=== PATIENT | male | born 1960 | race Hispanic/Latino ===

== ENCOUNTER 2016-11-19 12:23 | Emergency (ER) | payer SELFPAY ==
[~2016-11-19] VITALS: Ht 162.6 cm; Wt 86.0 kg
[~2016-11-19 12:23] MED LIST: ACETTAB3 OR; AMOXICILLIN500 MG OR; ASPIRIN EC325 MG PO; ASPIRIN EC81 MG PO; CEPHALEXIN500 M1 PO; CLINDAMYCIN HC300 MG PO; DULOXETINE HCL30 MG PO; FLEXERIL PO; FLONASE SPRAY50 MC1; HYDROCHLOROT12.5 M1 PO; HYDROCHLOROT12.5 MG PO; LIPITOR20 MG PO; LISINOPRIL10 MG PO; LORTAB 7.5 PO; LORTAB5 PO; MIRTAZAPINE15 MG PO; NAPROSYN500 MG PO; NEXIUM40 M1 PO; OMEPRAZOLE40 MG PO; RISPERDAL M1 MG PO; RISPERDAL2 MG PO; RISPERIDONE0.5 MG PO; ROBITUSSIN AC10 ML OR; SM ASPIRIN ENT325 MG PO; ULTRAM50 M1 PO; ULTRAM50 MG PO; ZANTAC150 MG OR; [UNRECOGNIZED DRUG - OTHER]; [UNRECOGNIZED DRUG - REMARK]; [UNRECOGNIZED DRUG - REMARK]
[2016-11-19] MEDS ORDERED: BUSPIRONE5 MG PO (12:44)
[2016-11-19 13:14] LABS: URINE BILIRUBIN - DIPSTICK NEGATIVE (NEGATIVE); URINE BLOOD DIPSTICK NEGATIVE (NEGATIVE); URINE CLARITY CLEAR; URINE COLOR YELLOW; URINE GLUCOSE - DIPSTICK 500 mg/dL (NEGATIVE); URINE KETONE NEGATIVE (NEGATIVE); URINE LEUK ESTERASE NEGATIVE (NEGATIVE); URINE NITRITE - DIPSTICK NEGATIVE (Negative); URINE PROTEIN - DIPSTICK NEGATIVE (NEG-TRACE); URINE UROBILINOGEN - DIPSTICK 0.2 E.U./dL (0.2)
[2016-11-19 13:15] LABS: HEMATOCRIT 44.1 % (39.0-50.0); HEMOGLOBIN 15.9 g/dl (14.0-18.0); IMMATURE GRANULOCYTES 0.5 % (0.0-1.0); MEAN CELL VOLUME 92.8 fL CALC (80.0-100.0); MEAN CORPUSCULAR HGB 33.5 pG CALC (26.0-32.0); MEAN CORPUSCULAR HGB CONC 36.1 g/L CALC (32.0-36.0); NEUT# 3.2 thou/uL (1.82-7.42); RED BLOOD COUNT 4.75 mill/uL (4.70-6.10); RED CELL DISTRI WIDTH 12.6 % (11.5-15.5)
[2016-11-19 13:27] LABS: ALBUMIN 4.4 g/dL (3.2-5.0); ALKALINE PHOSPHATASE 57 u/l (38-126); ANION GAP 17 (6-22 (CALC)); BILIRUBIN, TOTAL 0.7 mg/dL (0.0-1.4); BUN 15 mg/dL (9-20); BUN/CREATININE RATIO 17 (12-20 (CALC)); CALCIUM 9.4 mg/dL (8.4-10.2); CARBON DIOXIDE 23 mmol/l (22-30); CHLORIDE 104 mmol/l (95-108); CREATININE 0.9 mg/dL (0.7-1.3); GFR > 60 ML/MIN (>=60 (CALC)); GFR FOR AFR.AMER. > 60 ML/MIN (>=60 (CALC)); GLUCOSE 218 mg/dL (75-110); LIPASE 175 u/l (23-300); POTASSIUM 3.9 mmol/l (3.5-5.1); SGOT/AST 22 u/l (17-59); SGPT/ALT 46 u/l (21-72); SODIUM 140 mmol/l (137-146); TOTAL PROTEIN 7.8 g/dL (6.3-8.2)
[2016-11-19] MEDS ORDERED: ZOFRAN4 M1 PO (15:00)
[2016-11-19 15:11] VITALS: BP 98/61
== END 2016-11-19 15:21 | disposition home or self-care (01) | DRG 392 ==
LOC: ED 12:23
PROVIDERS: Family Medicine
DX: R10.30 Lower abdominal pain, unspecified (principal); I10 Essential (primary) hypertension; K29.70 Gastritis, unspecified, without bleeding
CPT/HCPCS: Q9967

== ENCOUNTER 2019-10-25 16:55 | Emergency (ER) | payer BC ==
[~2019-10-25] VITALS: Ht 162.6 cm; Wt 86.0 kg
[~2019-10-25 16:55] MED LIST changes: +BUSPIRONE5 MG PO; +ZOFRAN4 M1 PO
[2019-10-25 17:26] LABS: HEMOGLOBIN 14.7 g/dl (14.0-18.0); IMMATURE GRANULOCYTES 0.2 % (0.0-5.0); MEAN CORPUSCULAR HGB CONC 33.4 g/dL CAL (32.0-36.0); NEUT# 2.84 thou/uL (1.82-7.42); RED BLOOD COUNT 4.59 mill/uL (4.70-6.10); RED CELL DISTRI WIDTH 12.7 % (11.5-15.5)
[2019-10-25 17:27] LABS: MEAN CELL VOLUME 95.9 fL CALC (80.0-100.0)
[2019-10-25 17:39] LABS: ALBUMIN 4.5 g/dL (3.2-5.0); ALKALINE PHOSPHATASE 68 u/l (38-126); ANION GAP 11 (6-22 (CALC)); BUN 29 mg/dL (9-20); BUN/CREATININE RATIO 28 (12-20 (CALC)); CARBON DIOXIDE 26 mmol/l (22-30); CHLORIDE 105 mmol/l (95-108); GFR > 60 ML/MIN (>=60 (CALC)); GFR FOR AFR.AMER. > 60 ML/MIN (>=60 (CALC)); LIPASE 167 u/l (23-300); POTASSIUM 4.5 mmol/l (3.5-5.1); SGOT/AST 32 u/l (17-59); SODIUM 137 mmol/l (137-146); TOTAL PROTEIN 7.8 g/dL (6.3-8.2)
[2019-10-25 17:47] LABS: BILIRUBIN, TOTAL 0.3 mg/dL (0.0-1.4)
[2019-10-25 17:47] LABS: URINE BILIRUBIN - DIPSTICK NEGATIVE (NEGATIVE); URINE BLOOD DIPSTICK NEGATIVE (NEGATIVE); URINE COLOR YELLOW; URINE GLUCOSE - DIPSTICK NEGATIVE (NEGATIVE); URINE KETONE NEGATIVE (NEGATIVE); URINE LEUK ESTERASE NEGATIVE (NEGATIVE); URINE NITRITE - DIPSTICK NEGATIVE (Negative); URINE PROTEIN - DIPSTICK NEGATIVE (NEG-TRACE); URINE UROBILINOGEN - DIPSTICK 0.2 E.U./dL (0.2)
[2019-10-25] MEDS ORDERED: PEPCID20 MG PO ×3 (18:48→19:09)
[2019-10-25] MEDS ORDERED: ZOFRAN4 MG/TAB PO ×3 (18:48→19:09)
[2019-10-25 19:03] VITALS: BP 165/99
== END 2019-10-25 19:13 | disposition home or self-care (01) | DRG 392 ==
LOC: ED 16:55
DX: K29.70 Gastritis, unspecified, without bleeding (principal); I10 Essential (primary) hypertension
CPT/HCPCS: Q9967

== ENCOUNTER 2020-05-30 14:03 | Emergency (ER) | payer OTHER ==
[~2020-05-30] VITALS: Ht 165.1 cm; Wt 91.0 kg
[~2020-05-30 14:03] MED LIST changes: +PEPCID20 MG PO; +ZOFRAN4 MG/TAB PO
[2020-05-30] MEDS ORDERED: LISINOPRIL20 M1 PO (15:24)
[2020-05-30 17:40] VITALS: BP 123/88
== END 2020-05-30 17:40 | disposition home or self-care (01) | DRG 605 ==
LOC: ED 14:03
DX: S61.032A Puncture wound without foreign body of left thumb without damage to nail, initial encounter (principal); S29.012A Strain of muscle and tendon of back wall of thorax, initial encounter; S86.912A Strain of unspecified muscle(s) and tendon(s) at lower leg level, left leg, initial encounter; S16.1XXA Strain of muscle, fascia and tendon at neck level, initial encounter; I10 Essential (primary) hypertension; V49.50XA Passenger injured in collision with unspecified motor vehicles in traffic accident, initial encounter; Y99.0 Civilian activity done for income or pay

== ENCOUNTER 2020-10-09 09:35 | Observation (INO) | payer OTHER ==
[~2020-10-09] VITALS: Ht 162.6 cm; Wt 91.0 kg
[~2020-10-09 09:35] MED LIST changes: +LISINOPRIL20 M1 PO
--- NOTE | 2020-10-09 09:45 | NUR ---
TO ROOM FOR TRIAGE
[2020-10-09 10:30] LABS: ALBUMIN 4.1 g/dL (3.2-5.0); ALKALINE PHOSPHATASE 52 u/l (38-126); ANION GAP 14 (6-22 (CALC)); BUN 20 mg/dL (8-23); BUN/CREATININE RATIO 22 (12-20 (CALC)); CARBON DIOXIDE 24 mmol/l (22-30); CHLORIDE 103 mmol/l (95-108); CREATININE 0.9 mg/dL (0.7-1.3); GFR > 60 ML/MIN (>=60 (CALC)); GFR FOR AFR.AMER. > 60 ML/MIN (>=60 (CALC)); LIPASE 181 u/l (23-300); POTASSIUM 4.7 mmol/l (3.5-5.1); SGOT/AST 31 u/l (19-48); SODIUM 136 mmol/l (137-146); TOTAL PROTEIN 7.5 g/dL (6.3-8.2)
[2020-10-09 10:31] LABS: BILIRUBIN, TOTAL 0.5 mg/dL (0.0-1.4)
[2020-10-09 10:38] LABS: HEMATOCRIT 40.4 % (39.0-50.0); IMMATURE GRANULOCYTES 0.2 % (0.0-5.0); MEAN CELL VOLUME 95.5 fL CALC (80.0-100.0); MEAN CORPUSCULAR HGB 33.1 pG CALC (26.0-32.0); MEAN CORPUSCULAR HGB CONC 34.7 g/dL CAL (32.0-36.0); NEUT# 2.42 thou/uL (1.82-7.42); RED BLOOD COUNT 4.23 mill/uL (4.70-6.10); RED CELL DISTRI WIDTH 12.4 % (11.5-15.5)
[2020-10-09 10:42] LABS: MYOGLOBIN 43 ng/mL (0 - 121)
[2020-10-09] MEDS ORDERED: MAXZIDE-2537.5 MG/TA PO (10:45)
[2020-10-09] MEDS ORDERED: GABAPENTIN300 M2 PO (10:46)
[2020-10-09] MEDS ORDERED: MELOXICAM7.5 MG PO (10:46)
--- NOTE | 2020-10-09 11:32 | NUR ---
BP 99/60 WITH SECOND SL NITRO, NO CHNAGE IN PAIN LEVEL, REMAINS 3/10. DR VALADEZ AWARE.
--- NOTE | 2020-10-09 12:44 | NUR ---
TO BEDSIDE TO VOID WITH URINAL. TOLERATED WELL
[2020-10-09 13:08] LABS: URINE BILIRUBIN - DIPSTICK NEGATIVE (NEGATIVE); URINE BLOOD DIPSTICK NEGATIVE (NEGATIVE); URINE COLOR YELLOW; URINE GLUCOSE - DIPSTICK NEGATIVE (NEGATIVE); URINE KETONE NEGATIVE (NEGATIVE); URINE LEUK ESTERASE NEGATIVE (NEGATIVE); URINE NITRITE - DIPSTICK NEGATIVE (Negative); URINE PROTEIN - DIPSTICK NEGATIVE (NEG-TRACE); URINE UROBILINOGEN - DIPSTICK 0.2 E.U./dL (0.2)
--- NOTE | 2020-10-09 15:03 | NUR ---
RESTING QUIETLY. CALL ORELLANA IN REACH
--- NOTE | 2020-10-09 19:05 | NUR ---
REPORT TO EMMIE GRAHAM
[2020-10-09 19:30] VITALS: BP 152/84
--- NOTE | 2020-10-09 19:40 | NUR ---
PT RECEIVED FROM ED TO ROOM 261. ARRIVES VIA WC ACCOMPANIED BY PATRICIA OLEA. PT AMBULATORY TO BED. GAIT UNSTEADY. PT DENIES PAIN AT THIS TIME. ORIENTED TO UNIT, ROOM, CALL ORELLANA, LIGHTS, TV. ICE WATER PROVIDED. CALL ORELLANA WITHIN REACH. AGREES TO CALL PRN.
--- NOTE | 2020-10-09 20:00 | NUR ---
HYSICAL ASSESMENT COMPLETE. PT CURRENTLY DENIES PAIN OR DISCOMFORT. CHEDULED MEDICATIONS AND PRN MEDICATION ADMINISTERED, SEE E-MAR. PT IS [place] SPEAKING BUT DOES SPEAK SOME [place]. PT DENIES [place] NEEDS AT THIS TIME. PLAN OF CARE REVIEWED, PT DENIES QUESTIONS, ERBALIZES UNDERSTANDING. ITEMS WITHIN REACH, BED LOCKED IN LOW POSITION W/ EDRAILS UP X2. CALL ORELLANA WITHIN REACH, AGREES TO CALL PRN.
--- NOTE | 2020-10-09 20:00 | NUR ---
PHYSICAL ASSESMENT COMPLETE. PT CURRENTLY DENIES PAIN OR DISCOMFORT. SCHEDULED MEDICATIONS AND PRN MEDICATION ADMINISTERED, SEE E-MAR. PT IS CITIZEN OF [place] SPEAKING BUT DOES SPEAK SOME [place]. PT DENIES ANY NEEDS AT THIS TIME. PLAN OF CARE REVIEWED, PT DENIES QUESTIONS, VERBALIZES UNDERSTANDING. ITEMS WITHIN REACH, BED LOCKED IN LOW POSITION W/ BEDRAILS UP X2. CALL ORELLANA WITHIN REACH, AGREES TO CALL PRN.
[2020-10-09 23:30] VITALS: BP 130/72
--- NOTE | 2020-10-10 00:50 | NUR ---
PT LAYING IN BED WITH EYES CLOSED, APPEARS TO BE SLEEPING, APPEARS COMFORTABLE AND IN NO DISTRESS. RESPIRATIONS REGULAR AND UNLABORED. ITEMS REMAIN WITHIN REACH, CALL ORELLANA REMAINS WITHIN REACH. BED REMAINS LOCKED AND IN LOW POSITION WITH BEDRAILS UP X2. WILL CONTINUE TO MONITOR.
[2020-10-10 03:15] VITALS: BP 127/74
--- NOTE | 2020-10-10 04:09 | NUR ---
PT RESTING IN BED, NO SIGNS OF DISTRESS NOTED, RESP EVEN AND UNLABORED. PT VOICES NO NEEDS OR COMPLAINTS AT THIS TIME. CALL LIGHT IN REACH, CONTINUE TO MONITOR.
[2020-10-10 05:33] LABS: BUN 15 mg/dL (8-23); BUN/CREATININE RATIO 18 (12-20 (CALC)); CALCULATED LDLCHOLESTEROL 128 mg/dL (62-129 (CALC)); CARBON DIOXIDE 25 mmol/l (22-30); CHLORIDE 105 mmol/l (95-108); CHOLESTEROL HDL RATIO 7.9 (<4.4 (CALC)); CREATININE 0.8 mg/dL (0.7-1.3); GFR > 60 ML/MIN (>=60 (CALC)); GFR FOR AFR.AMER. > 60 ML/MIN (>=60 (CALC)); HDL CHOLESTEROL 24 mg/dL (>=40); POTASSIUM 4.3 mmol/l (3.5-5.1); TOTAL CHOLESTEROL 189 mg/dl (0-199); TOTAL TRIGLYCERIDES 184 mg/dl (30-149); VLDL CHOLESTROL 37 mg/dl (4-45 (CALC))
[2020-10-10 05:35] LABS: ANION GAP 10 (6-22 (CALC)); SODIUM 136 mmol/l (137-146)
[2020-10-10 05:40] LABS: HEMATOCRIT 38.9 % (39.0-50.0); HEMOGLOBIN 13.5 g/dl (14.0-18.0); MEAN CORPUSCULAR HGB 33.3 pG CALC (26.0-32.0); MEAN CORPUSCULAR HGB CONC 34.7 g/dL CAL (32.0-36.0); RED BLOOD COUNT 4.05 mill/uL (4.70-6.10); RED CELL DISTRI WIDTH 12.6 % (11.5-15.5)
[2020-10-10 07:29] VITALS: BP 116/68
--- NOTE | 2020-10-10 08:00 | NUR ---
PT IN BED WHEN ENTERED. VITALS AND ASSESSMENT DONE. S1 AND S2 HEARD. LUNG SOUNDS CLEAR. BOWEL SOUNDS ACTIVE IN ALL 4 QUADRANTS. PEDAL PULSES EQUALLY STRONG BILATERALLY. NO DISTRESS NOTED. CALL LIGHT WITHIN REACH.
--- NOTE | 2020-10-10 09:50 | NUR ---
DR. GRACIA AND Libra MEDINA AT BEDSIDE DISCUSSING POC.
[2020-10-10 10:36] VITALS: BP 132/75
[2020-10-10] MEDS ORDERED: PANTOPRAZOLE SO40 M1 PO (11:43)
--- NOTE | 2020-10-10 12:00 | NUR ---
PT ON COUCH TALKING ON THE PHONE. NO DISTRESS NOTED. CALL LIGHT WITHIN REACH.
--- NOTE | 2020-10-10 13:57 | NUR ---
Discharge instructions given. Patient verbalizes understanding of same. Discharged in stable condition via Wheelchair to Home with staff. All belongings sent with pt.
== END 2020-10-10 13:07 | disposition home or self-care (01) | DRG 313 ==
LOC: ED 09:35 → ED-I 16:36 → ED 17:50 → MS2 17:51
PROVIDERS: Emergency Medicine; ADMIT Hospitalist; ATTEND Hospitalist
DX: R07.9 Chest pain, unspecified (principal); I10 Essential (primary) hypertension; K21.9 Gastro-esophageal reflux disease without esophagitis; E78.5 Hyperlipidemia, unspecified; R06.83 Snoring; G47.30 Sleep apnea, unspecified; Z20.822 Contact with and (suspected) exposure to COVID-19
CPT/HCPCS: G0378

== ENCOUNTER 2020-12-30 18:28 | Emergency (ER) | payer OTHER ==
[~2020-12-30] VITALS: Ht 162.6 cm; Wt 89.0 kg
[~2020-12-30 18:28] MED LIST changes: +GABAPENTIN300 M2 PO; +MAXZIDE-2537.5 MG/TA PO; +MELOXICAM7.5 MG PO; +PANTOPRAZOLE SO40 M1 PO
[2020-12-30 18:55] VITALS: BP 157/78
== END 2020-12-30 18:55 | disposition home or self-care (01) | DRG 603 ==
LOC: ED 18:28
DX: L03.114 Cellulitis of left upper limb (principal); I10 Essential (primary) hypertension; E78.5 Hyperlipidemia, unspecified

== ENCOUNTER 2021-11-06 14:49 | Emergency (ER) | payer SELFPAY ==
[~2021-11-06] VITALS: Ht 162.6 cm; Wt 79.5 kg
[2021-11-06] VITALS (8 sets, daily range): BP systolic 105–125; BP diastolic 69–86
[2021-11-06 15:20] LABS: HEMATOCRIT 37.7 % (39.0-50.0); IMMATURE GRANULOCYTES 0.1 % (0.0-5.0); MEAN CELL VOLUME 96.2 fL CALC (80.0-100.0); MEAN CORPUSCULAR HGB 33.2 pG CALC (26.0-32.0); MEAN CORPUSCULAR HGB CONC 34.5 g/dL CAL (32.0-36.0); NEUT# 3.79 thou/uL (1.82-7.42); RED BLOOD COUNT 3.92 mill/uL (4.70-6.10); RED CELL DISTRI WIDTH 12.6 % (11.5-15.5)
[2021-11-06 15:31] LABS: ALBUMIN 4.4 g/dL (3.2-5.0); ALKALINE PHOSPHATASE 48 u/l (38-126); BILIRUBIN, TOTAL 0.4 mg/dL (0.0-1.4); BUN 30 mg/dL (8-23); CARBON DIOXIDE 22 mmol/l (22-30); CHLORIDE 106 mmol/l (95-108); SGOT/AST 29 u/l (19-48); SODIUM 137 mmol/l (137-146); TOTAL PROTEIN 8.1 g/dL (6.3-8.2)
[2021-11-06 15:34] LABS: ANION GAP 14 (6-22 (CALC)); BUN/CREATININE RATIO 15 (12-20 (CALC)); GFR FOR AFR.AMER. 41 ML/MIN (>=60 (CALC)); GFR OTHER RACES 34 ML/MIN (>=60 (CALC)); POTASSIUM 5.3 mmol/l (3.5-5.1)
[2021-11-06] MEDS ORDERED: SPS15 GM/601 PO (18:10)
[2021-11-06] MEDS ORDERED: ZOFRAN4 MG/TAB PO (18:11)
== END 2021-11-06 18:32 | disposition home or self-care (01) | DRG 552 ==
LOC: ED 14:49
PROVIDERS: Family Medicine
DX: M54.2 Cervicalgia (principal); E87.5 Hyperkalemia; I10 Essential (primary) hypertension; K21.9 Gastro-esophageal reflux disease without esophagitis; E78.5 Hyperlipidemia, unspecified; Z20.822 Contact with and (suspected) exposure to COVID-19

== ENCOUNTER 2021-11-17 21:41 | Emergency (ER) | payer SELFPAY ==
[~2021-11-17] VITALS: Ht 162.6 cm; Wt 88.6 kg
[~2021-11-17 21:41] MED LIST changes: +SPS15 GM/601 PO
[2021-11-18 00:17] LABS: HEMATOCRIT 37.7 % (39.0-50.0); HEMOGLOBIN 13.3 g/dl (14.0-18.0); IMMATURE GRANULOCYTES 0.2 % (0.0-5.0); MEAN CORPUSCULAR HGB 33.2 pG CALC (26.0-32.0); MEAN CORPUSCULAR HGB CONC 35.3 g/dL CAL (32.0-36.0); NEUT# 2.72 thou/uL (1.82-7.42); RED BLOOD COUNT 4.01 mill/uL (4.70-6.10); RED CELL DISTRI WIDTH 12.7 % (11.5-15.5)
[2021-11-18 00:26] LABS: ALBUMIN 4.5 g/dL (3.2-5.0); ALKALINE PHOSPHATASE 50 u/l (38-126); ANION GAP 8 (6-22 (CALC)); BILIRUBIN, TOTAL 0.5 mg/dL (0.0-1.4); BUN 25 mg/dL (8-23); BUN/CREATININE RATIO 21 (12-20 (CALC)); CARBON DIOXIDE 24 mmol/l (22-30); CHLORIDE 108 mmol/l (95-108); CREATININE 1.2 mg/dL (0.7-1.3); GFR FOR AFR.AMER. > 60 ML/MIN (>=60 (CALC)); GFR OTHER RACES > 60 ML/MIN (>=60 (CALC)); POTASSIUM 4.5 mmol/l (3.5-5.1); SGOT/AST 29 u/l (19-48); SODIUM 136 mmol/l (137-146); TOTAL PROTEIN 8.3 g/dL (6.3-8.2)
[2021-11-18 00:38] LABS: MYOGLOBIN 54 ng/mL (0 - 121)
[2021-11-18] MEDS ORDERED: FIORICET PO (03:36)
[2021-11-18 04:10] VITALS: BP 130/83
[2021-11-18] MEDS ORDERED: ASPIRIN 81 LOW81 MG PO (05:30)
== END 2021-11-18 05:00 | disposition home or self-care (01) | DRG 103 ==
LOC: ED 21:41
PROVIDERS: Emergency Medicine
DX: R51.9 Headache, unspecified (principal); I10 Essential (primary) hypertension; E78.5 Hyperlipidemia, unspecified; K21.9 Gastro-esophageal reflux disease without esophagitis
CPT/HCPCS: Q9967

== ENCOUNTER 2022-12-14 22:15 | Observation (INO) | payer OTHER ==
[~2022-12-14] VITALS: Ht 162.6 cm; Wt 88.7 kg
[~2022-12-14 22:15] MED LIST changes: +ASPIRIN 81 LOW81 MG PO; +FIORICET PO
[2022-12-14 22:33] VITALS: BP 142/83
[2022-12-14 22:46] VITALS: BP 125/80
[2022-12-14 23:00] VITALS: BP 133/81
[2022-12-14 23:05] LABS: BASO% 0.6 % (0-3); EOS% 5.5 % (0-8); HEMATOCRIT 41.6 % (39.0-50.0); HEMOGLOBIN 14.2 g/dl (14.0-18.0); IMMATURE GRANULOCYTES 0.5 % (0.0-5.0); LYMPH% 39.3 % (15-41); MEAN CELL VOLUME 93.9 fL CALC (80.0-100.0); MEAN CORPUSCULAR HGB 32.1 pG CALC (26.0-32.0); MEAN CORPUSCULAR HGB CONC 34.1 g/dL CAL (32.0-36.0); MONO% 8.6 % (2-13); NEUT# 2.95 thou/uL (1.82-7.42); NEUT% 45.5 % (42-76); RED BLOOD COUNT 4.43 mill/uL (4.70-6.10)
[2022-12-14 23:15] VITALS: BP 130/80
[2022-12-14 23:19] LABS: INTERNATIONAL NORMALIZED RATIO 1.1 RATIO (0.7-1.3); PROTHROMBIN TIME 10.6 SECONDS (9.0-12.5)
[2022-12-14 23:21] LABS: ALBUMIN 3.9 g/dL (3.2-5.0); ALKALINE PHOSPHATASE 62 u/l (38-126); ANION GAP 11 (6-22 (CALC)); BILIRUBIN, TOTAL 0.6 mg/dL (0.2-1.3); BUN 23 mg/dL (8-23); BUN/CREATININE RATIO 24 (12-20 (CALC)); CARBON DIOXIDE 23 mmol/l (22-30); CHLORIDE 107 mmol/l (95-108); GFR FOR AFR.AMER. > 60 ML/MIN (>=60 (CALC)); GFR OTHER RACES > 60 ML/MIN (>=60 (CALC)); POTASSIUM 4.1 mmol/l (3.5-5.1); SGOT/AST 37 u/l (19-48); SODIUM 137 mmol/l (137-146); TOTAL PROTEIN 7.2 g/dL (6.3-8.2)
[2022-12-14 23:30] VITALS: BP 119/72
[2022-12-14 23:31] LABS: CALCULATED LDLCHOLESTEROL 123 mg/dL (62-129 (CALC)); HDL CHOLESTEROL 30 mg/dL (39.0-59.0); TOTAL CHOLESTEROL 179 mg/dl (0-199); TOTAL TRIGLYCERIDES 131 mg/dl (0-149); VLDL CHOLESTROL 26 mg/dl (4-45 (CALC))
[2022-12-14 23:45] VITALS: BP 128/74
[2022-12-15] VITALS (25 sets, daily range): BP systolic 106–182; BP diastolic 55–107
[2022-12-15 01:17] LABS: URINE BILIRUBIN - DIPSTICK Negative (NEGATIVE); URINE BLOOD DIPSTICK Negative (NEGATIVE); URINE GLUCOSE - DIPSTICK Negative (NEGATIVE); URINE KETONE Negative (NEGATIVE); URINE LEUK ESTERASE Negative (NEGATIVE); URINE NITRITE - DIPSTICK Negative (Negative); URINE PROTEIN - DIPSTICK Negative (NEG-TRACE); URINE SPECIFIC GRAVITY 1.015; URINE UROBILINOGEN - DIPSTICK 0.2 E.U./dL (0.2)
[2022-12-15 01:18] LABS: URINE COLOR Yellow
[2022-12-15] MEDS ORDERED: ATORVASTATIN CA40 MG PO (15:17)
[2022-12-15] MEDS ORDERED: ASPIRIN81 MG PO (15:17)
== END 2022-12-15 16:29 | disposition home or self-care (01) | DRG 305 ==
LOC: ED 22:15 → ED-I 12-15 04:16 → ED 12-15 04:27 → MS2 12-15 04:28
PROVIDERS: Emergency Medicine; ADMIT Student in an Organized Health Care Education/Training Program; ATTEND Student in an Organized Health Care Education/Training Program
DX: I16.1 Hypertensive emergency (principal); I10 Essential (primary) hypertension; K21.9 Gastro-esophageal reflux disease without esophagitis; E78.5 Hyperlipidemia, unspecified
CPT/HCPCS: Q9967

== ENCOUNTER 2023-04-05 21:42 | Emergency (ER) | payer OTHER ==
[~2023-04-05] VITALS: Ht 162.6 cm; Wt 89.0 kg
[~2023-04-05 21:42] MED LIST changes: +ASPIRIN81 MG PO; +ATORVASTATIN CA40 MG PO
[2023-04-05 22:22] VITALS: BP 128/88
[2023-04-05 22:35] LABS: BASO% 0.3 % (0-3); HEMATOCRIT 42.3 % (39.0-50.0); HEMOGLOBIN 14.6 g/dl (14.0-18.0); LYMPH% 50.6 % (15-41); MEAN CELL VOLUME 93.8 fL CALC (80.0-100.0); MEAN CORPUSCULAR HGB 32.4 pG CALC (26.0-32.0); MEAN CORPUSCULAR HGB CONC 34.5 g/dL CAL (32.0-36.0); MONO% 6.8 % (2-13); NEUT# 2.74 thou/uL (1.82-7.42); NEUT% 39.3 % (42-76); RED BLOOD COUNT 4.51 mill/uL (4.70-6.10); RED CELL DISTRI WIDTH 12.9 % (11.5-15.5)
[2023-04-05 22:38] LABS: URINE BILIRUBIN - DIPSTICK Negative (NEGATIVE); URINE BLOOD DIPSTICK Negative (NEGATIVE); URINE COLOR Yellow; URINE GLUCOSE - DIPSTICK Negative (NEGATIVE); URINE KETONE Negative (NEGATIVE); URINE LEUK ESTERASE Negative (NEGATIVE); URINE NITRITE - DIPSTICK Negative (Negative); URINE PROTEIN - DIPSTICK Negative (NEG-TRACE); URINE UROBILINOGEN - DIPSTICK 0.2 E.U./dL (0.2)
[2023-04-05 22:47] LABS: ALBUMIN 4.6 g/dL (3.2-5.0); ALKALINE PHOSPHATASE 56 u/l (38-126); ANION GAP 13 (6-22 (CALC)); BILIRUBIN, TOTAL 0.7 mg/dL (0.2-1.3); BUN 33 mg/dL (8-23); BUN/CREATININE RATIO 30 (12-20 (CALC)); CARBON DIOXIDE 24 mmol/l (22-30); CHLORIDE 106 mmol/l (95-108); CREATININE 1.1 mg/dL (0.7-1.3); GFR FOR AFR.AMER. > 60 ML/MIN (>=60 (CALC)); GFR OTHER RACES > 60 ML/MIN (>=60 (CALC)); LIPASE 254 u/l (23-300); POTASSIUM 4.4 mmol/l (3.5-5.1); SGOT/AST 58 u/l (19-48); SODIUM 139 mmol/l (137-146)
[2023-04-06 00:31] VITALS: BP 128/88
== END 2023-04-06 00:37 | disposition home or self-care (01) | DRG 563 ==
LOC: ED 21:42
PROVIDERS: Family Medicine
DX: S39.011A Strain of muscle, fascia and tendon of abdomen, initial encounter (principal); I10 Essential (primary) hypertension; K21.9 Gastro-esophageal reflux disease without esophagitis; E78.5 Hyperlipidemia, unspecified; X58.XXXA Exposure to other specified factors, initial encounter

== ENCOUNTER 2023-12-12 07:29 | Day surgery (SDC) | payer OTHER ==
[~2023-12-12] VITALS: Ht 162.6 cm; Wt 88.5 kg
[~2023-12-12 07:29] MED LIST changes: +MAXZIDE-25MG1 COMBO PO
[2023-12-12] MEDS ORDERED: LACTATED RINGER'S 1,000 ML IV ONE (08:05)
[2023-12-12] MEDS ORDERED: FAMOTIDINE 10MG/ML 2ML SDV IV ONE (08:05)
[2023-12-12 10:33] VITALS: BP 125/94
[2023-12-12] MEDS ORDERED: LIDOCAINE HCL 2% 2ML SDV IV ONE (15:45)
[2023-12-12] MEDS ORDERED: PROPOFOL 200 MG/20 ML VIAL IV ONE (15:45)
[2023-12-12] MEDS ORDERED: GLYCOPYRROLATE 0.2 MG/ML IV ONE (15:45)
== END 2023-12-12 10:46 | disposition home or self-care (01) ==
LOC: ENDO 07:29
PROVIDERS: ATTEND Surgery
DX: Z12.11 Encounter for screening for malignant neoplasm of colon (principal); K50.10 Crohn's disease of large intestine without complications; K64.8 Other hemorrhoids; I10 Essential (primary) hypertension; K21.9 Gastro-esophageal reflux disease without esophagitis; E78.5 Hyperlipidemia, unspecified